=== PATIENT | male | born 1990 | race Caucasian/White ===

== ENCOUNTER 2018-01-03 18:41 | Emergency (ER) | payer BC, OTHER ==
--- NOTE | 2018-01-03 19:05 | EDM.PDOC ---
ED HPI GENERAL MEDICAL PROBLEM - General Chief Complaint: Gastrointestinal Problem Stated Complaint: NAUSEA, VOMITING Time Seen by Provider: 01/03/18 19:04 Source of Information: Reports: Patient - History of Present Illness INITIAL COMMENTS - FREE TEXT/NARRATIVE: HISTORY AND PHYSICAL: History of present illness: 27-year-old male presenting emergency department by EMS with chief complaint of upper abdominal pain with associated nausea and vomiting 1 day. Patient states that today he began to have some nausea and vomiting. He called EMS secondary to feeling short of breath with the nausea and vomiting. Denies any associated chest pain, palpitations, syncopal episodes, or focal neurologic deficits. States that he has had multiple times of vomiting today. Denies any blood in the vomitus. Denies any diarrhea. Pain is localized to the epigastric area. Patient still has his gallbladder and appendix. Denies any fever but has had chills. States that a few days ago he did have severe heartburn. Also states that he did have some left flank pain. No history of kidney stones. Denies any hematuria or dysuria. Patient does admit to smoking marijuana on a daily basis. He also occasionally states that he does on occasion smoke methamphetamine. Also states that he does have a history of asthma. -2100 CBC showed mild leukocytosis of 12,000 most likely stress response, CMP was unremarkable, showed no acute abnormalities. H pylori was negative, urine drug, UA pending. -2130 urine analysis was unremarkable. Urine drug screen was positive for amphetamine and marijuana as patient did tell me. Patient had significant relief with IV Zofran as well as GI cocktail. Review of systems: As per history of present illness and below otherwise all systems reviewed and negative. Past medical history: As per history of present illness and as reviewed below otherwise noncontributory. Surgical history: As per history of present illness and as reviewed below otherwise noncontributory. Social history: No reported history of drug or alcohol abuse. Family history: As per history of present illness and as reviewed below otherwise noncontributory. Physical exam: HEENT: Atraumatic, normocephalic, pupils reactive, negative for conjunctival pallor or scleral icterus, mucous membranes moist, throat clear, neck supple, nontender, trachea midline. Lungs: Clear to auscultation, breath sounds equal bilaterally, chest nontender. Heart: S1S2, regular, negative for clicks, rubs, or JVD. Abdomen: Soft, nondistended, tender to palpation epigastric with no radiation. Negative for masses or hepatosplenomegaly. Negative for costovertebral tenderness. Pelvis: Stable nontender. Genitourinary: Deferred. Rectal: Deferred. Extremities: Atraumatic, negative for cords or calf pain. Neurovascular unremarkable. Neuro: Awake, alert, oriented. Cranial nerves II through XII unremarkable. Cerebellum unremarkable. Motor and sensory unremarkable throughout. Exam nonfocal. Diagnostics: CBC, CMP, UA/UC, urine drug screen, CT abdomen pelvis Therapeutics: 1 L normal saline, 20 mg IV famotidine, 8 mg IV Zofran, GI cocktail Impression: Viral gastroenteritis GERD Plan: CBC, CMP, UA, CT abdomen and pelvis were unremarkable. Patient was positive for meth as well as marijuana which he had told me prior to taking. I did talk to him about stopping and as well as people who smoke marijuana daily ,may have had similar symptoms with nausea and vomiting. Patient most likely at this time has a viral gastroenteritis complicated by GERD. He does not take an antiacid but does report history of heartburn. I discharge the patient in good condition with a prescription for omeprazole as well as Zofran. I also instructed him to follow-up with a primary care provider as he may need an endoscopy at some point. He was negative for H. pylori. Patient was instructed to return to emergency department if he had any new or worsening symptoms. - Related Data Allergies Allergy/AdvReac Type Severity Reaction Status Date / Time No Known Allergies Allergy Verified 01/03/18 18:46 Home Meds: Home Meds . [No Known Home Meds] 01/03/18 [History] Past Medical History - Past Health History Medical/Surgical History: Denies Medical/Surgical History Psychiatric History: Reports: Addiction - Infectious Disease History Infectious Disease History: Reports: Chicken Pox Social & Family History - Family History Family Medical History: Noncontributory - Tobacco Use Smoking Status *Q: Current Every Day Smoker Years of Tobacco use: 10 Packs/Tins Daily: 1 - Recreational Drug Use Recreational Drug Use: Yes Recreational Drug Type: Reports: Marijuana/Hashish, Methamphetamine Other Recreational Drug Type: marijuana daily, meth occasional use ED ROS GENERAL - Review of Systems Review Of Systems: ROS reveals no pertinent complaints other than HPI. ED EXAM, GENERAL - Physical Exam Exam: See Below Course - Vital Signs Last Recorded V/S: Last Vital Signs Temp 96.8 F 01/03/18 18:42 Pulse 91 01/03/18 18:42 Resp 18 01/03/18 18:42 BP 123/73 01/03/18 18:42 Pulse Ox 100 01/03/18 18:42 - Orders/Labs/Meds Orders: Active Orders 24 hr Category Date Time Status Abdomen Pelvis w Cont [CT] Stat Exams 01/03/18 19:22 Taken CULTURE URINE [RM] Stat Lab 01/03/18 20:45 Ordered DRUG SCREEN, URINE [URCHEM] Stat Lab 01/03/18 20:45 Ordered UA W/MICROSCOPIC [URIN] Stat Lab 01/03/18 20:45 Ordered Labs: Laboratory Tests 01/03/18 01/03/18 01/03/18 Range/Units 19:39 19:39 19:39 WBC 12.29 H (4.0-11.0) K/uL RBC 5.62 (4.50-5.90) M/uL Hgb 16.5 (13.0-17.0) g/dL Hct 49.2 (38.0-50.0) % MCV 87.5 (80.0-98.0) fL MCH 29.4 (27.0-32.0) pg MCHC 33.5 (31.0-37.0) g/dL RDW Std Deviation 43.0 (28.0-62.0) fl RDW Coeff of Alex 13 (11.0-15.0) % Plt Count 252 (150-400) K/uL MPV 8.80 (7.40-12.00) fL Neut % (Auto) 84.5 H (48.0-80.0) % Lymph % (Auto) 10.8 L (16.0-40.0) % Cloud % (Auto) 4.3 (0.0-15.0) % Eos % (Auto) 0.2 (0.0-7.0) % Baso % (Auto) 0.2 (0.0-1.5) % Neut # (Auto) 10.4 H (1.4-5.7) K/uL Lymph # (Auto) 1.3 (0.6-2.4) K/uL Cloud # (Auto) 0.5 (0.0-0.8) K/uL Eos # (Auto) 0.0 (0.0-0.7) K/uL Baso # (Auto) 0.0 (0.0-0.1) K/uL Nucleated RBC % 0.0 /100WBC Nucleated RBCs # 0 K/uL Sodium 138 (136-148) mmol/L Potassium 4.2 (3.5-5.1) mmol/L Chloride 101 (98-107) mmol/L Carbon Dioxide 28.3 (21.0-32.0) mmol/L BUN 11 (7.0-18.0) mg/dL Creatinine 1.0 (0.8-1.3) mg/dL Est Cr Clr Drug Dosing 122.87 mL/min Estimated GFR (MDRD) > 60.0 ml/min Glucose 126 H (74-106) mg/dL Calcium 9.2 (8.5-10.1) mg/dL Total Bilirubin 0.4 (0.2-1.0) mg/dL AST 18 (15-37) IU/L ALT 32 (14-63) IU/L Alkaline Phosphatase 97 (46-116) U/L Total Protein 8.0 (6.4-8.2) g/dL Albumin 4.1 (3.4-5.0) g/dL Globulin 3.9 H (2.0-3.5) g/dL Albumin/Globulin Ratio 1.1 L (1.3-2.8) Amylase (25-115) U/L Lipase (73-393) U/L Urine Color Urine Appearance Urine pH (5.0-8.0) Ur Specific [place] (1.001-1.035) Urine Protein (NEGATIVE) mg/dL Urine Glucose (UA) (NEGATIVE) mg/dL Urine Ketones (NEGATIVE) mg/dL Urine Occult Blood (NEGATIVE) Urine Nitrite (NEGATIVE) Urine Bilirubin (NEGATIVE) Urine Urobilinogen (<2.0) EU/dL Ur Leukocyte Esterase (NEGATIVE) Urine RBC (0-2/HPF) Urine WBC (0-5/HPF) Ur Epithelial Cells (NONE-FEW) Urine Bacteria (NEGATIVE) Urine Opiates Screen (NEGATIVE) Ur Oxycodone Screen (NEGATIVE) Urine Methadone Screen (NEGATIVE) Ur Barbiturates Screen (NEGATIVE) Ur Phencyclidine Scrn (NEGATIVE) Ur Amphetamine Screen (NEGATIVE) U Methamphetamines Scrn (NEGATIVE) U Benzodiazepines Scrn (NEGATIVE) U Cocaine Metab Screen (NEGATIVE) U Marijuana (THC) Screen (NEGATIVE) H. pylori IgG Antibody NEGATIVE (NEG) 01/03/18 01/03/18 01/03/18 Range/Units 19:39 20:45 20:45 WBC (4.0-11.0) K/uL RBC (4.50-5.90) M/uL Hgb (13.0-17.0) g/dL Hct (38.0-50.0) % MCV (80.0-98.0) fL MCH (27.0-32.0) pg MCHC (31.0-37.0) g/dL RDW Std Deviation (28.0-62.0) fl RDW Coeff of Alex (11.0-15.0) % Plt Count (150-400) K/uL MPV (7.40-12.00) fL Neut % (Auto) (48.0-80.0) % Lymph % (Auto) (16.0-40.0) % Cloud % (Auto) (0.0-15.0) % Eos % (Auto) (0.0-7.0) % Baso % (Auto) (0.0-1.5) % Neut # (Auto) (1.4-5.7) K/uL Lymph # (Auto) (0.6-2.4) K/uL Cloud # (Auto) (0.0-0.8) K/uL Eos # (Auto) (0.0-0.7) K/uL Baso # (Auto) (0.0-0.1) K/uL Nucleated RBC % /100WBC Nucleated RBCs # K/uL Sodium (136-148) mmol/L Potassium (3.5-5.1) mmol/L Chloride (98-107) mmol/L Carbon Dioxide (21.0-32.0) mmol/L BUN (7.0-18.0) mg/dL Creatinine (0.8-1.3) mg/dL Est Cr Clr Drug Dosing mL/min Estimated GFR (MDRD) ml/min Glucose (74-106) mg/dL Calcium (8.5-10.1) mg/dL Total Bilirubin (0.2-1.0) mg/dL AST (15-37) IU/L ALT (14-63) IU/L Alkaline Phosphatase (46-116) U/L Total Protein (6.4-8.2) g/dL Albumin (3.4-5.0) g/dL Globulin (2.0-3.5) g/dL Albumin/Globulin Ratio (1.3-2.8) Amylase 66 (25-115) U/L Lipase 87 (73-393) U/L Urine Color YELLOW Urine Appearance HAZY Urine pH 5.0 (5.0-8.0) Ur Specific [place] 1.015 (1.001-1.035) Urine Protein NEGATIVE (NEGATIVE) mg/dL Urine Glucose (UA) NEGATIVE (NEGATIVE) mg/dL Urine Ketones 15 H (NEGATIVE) mg/dL Urine Occult Blood NEGATIVE (NEGATIVE) Urine Nitrite NEGATIVE (NEGATIVE) Urine Bilirubin NEGATIVE (NEGATIVE) Urine Urobilinogen 0.2 (<2.0) EU/dL Ur Leukocyte Esterase NEGATIVE (NEGATIVE) Urine RBC 0-2 (0-2/HPF) Urine WBC 1-3 (0-5/HPF) Ur Epithelial Cells RARE (NONE-FEW) Urine Bacteria FEW (NEGATIVE) Urine Opiates Screen NEGATIVE (NEGATIVE) Ur Oxycodone Screen NEGATIVE (NEGATIVE) Urine Methadone Screen NEGATIVE (NEGATIVE) Ur Barbiturates Screen NEGATIVE (NEGATIVE) Ur Phencyclidine Scrn NEGATIVE (NEGATIVE) Ur Amphetamine Screen POSITIVE (NEGATIVE) U Methamphetamines Scrn POSITIVE (NEGATIVE) U Benzodiazepines Scrn NEGATIVE (NEGATIVE) U Cocaine Metab Screen NEGATIVE (NEGATIVE) U Marijuana (THC) Screen POSITIVE (NEGATIVE) H. pylori IgG Antibody (NEG) Meds: Medications Discontinued Medications Generic Name Dose Route Start Last Admin Trade Name Freq PRN Reason Stop Dose Admin Al Hydroxide/Mg Hydroxide 15 0 ml 01/03/18 21:02 01/03/18 21:17 ml/ Metoclopramide HCl 5 mg/ PO 01/03/18 21:03 25 each Lidocaine HCl 5 ml ONETIME ONE Administration Famotidine 20 mg 01/03/18 19:22 01/03/18 20:23 Pepcid IVPUSH 01/03/18 19:23 20 mg ONETIME ONE Administration Sodium Chloride 1,000 mls @ 999 mls/hr 01/03/18 19:22 06/03/18 20:22 Normal Saline IV 01/03/18 20:22 999 mls/hr STAT ONE Administration Iopamidol 100 ml 01/03/18 20:10 01/03/18 20:11 Isovue Multipack-370 (76%) IVPUSH 01/03/18 20:11 100 ml ONETIME STA Administration Ondansetron HCl 8 mg 01/03/18 19:22 01/03/18 20:22 Zofran IVPUSH 01/03/18 19:23 8 mg ONETIME ONE Administration Departure - Departure Time of Disposition: 21:38 Disposition: Home, Self-Care 01 Condition: Good Clinical Impression: Viral gastroenteritis GERD (gastroesophageal reflux disease) Qualifiers: Esophagitis presence: esophagitis presence not specified Qualified Code(s): K21.9 - Gastro-esophageal reflux disease without esophagitis - Discharge Information Referrals: PCP,None [Primary Care Provider] - Forms: ED Department Discharge Additional Instructions: My general discharge The following information is given to patients seen in the emergency department who are being discharged to home. This information is to outline your options for follow-up care. We provide all patients seen in our emergency department with a follow-up referral. The need for follow-up, as well as the timing and circumstances, are variable depending upon the specifics of your emergency department visit. If you don't have a primary care physician on staff, we will provide you with a referral. We always advise you to contact your personal physician following an emergency department visit to inform them of the circumstance of the visit and for follow-up with them and/or the need for any referrals to a consulting specialist. The emergency department will also refer you to a specialist when appropriate. This referral assures that you have the opportunity for follow-up care with a specialist. All of these measure are taken in an effort to provide you with optimal care, which includes your follow-up. Under all circumstances we always encourage you to contact your private physician who remains a resource for coordinating your care. When calling for follow-up care, please make the office aware that this follow-up is from your recent emergency room visit. If for any reason you are refused follow-up, please contact the [facility] Emergency Department at and asked to speak to the emergency department charge nurse. [facility] [address] [place] [address] [facility] [address] [place] [address] Follow-up with one of the numbers above with a primary care physician. Take medications as prescribed. Abstain from marijuana and methamphetamine. Return emergency department if any new or worsening symptoms. - My Orders Last 24 Hours: My Active Orders 01/03/18 19:22 Abdomen Pelvis w Cont [CT] Stat 01/03/18 20:45 CULTURE URINE [RM] Stat DRUG SCREEN, URINE [URCHEM] Stat UA W/MICROSCOPIC [URIN] Stat - Assessment/Plan Last 24 Hours: My Active Orders 01/03/18 19:22 Abdomen Pelvis w Cont [CT] Stat 01/03/18 20:45 CULTURE URINE [RM] Stat DRUG SCREEN, URINE [URCHEM] Stat UA W/MICROSCOPIC [URIN] Stat
[2018-01-03] MEDS ORDERED: Famotidine 20 MG/2 ML SDV IVPUSH ONE (19:22)
[2018-01-03] MEDS ORDERED: Ondansetron 4 MG/2 ML SDV IVPUSH ONE (19:22)
[2018-01-03] MEDS ORDERED: Sodium Chloride 0.9% 1,000 ML IV ONE (19:22)
[2018-01-03 20:04] LABS: CHLORIDE,CL 101 mmol/L (98-107); SODIUM,NA 138 mmol/L (136-148)
[2018-01-03] MEDS ORDERED: Iopamidol 755 MG/ML 200 ML Multipack Bottle IVPUSH STA (20:10)
[2018-01-03] MEDS ORDERED: Alum Hydrox/Mag Hydrox/Simeth 15 ML, Metoclopramide 5 MG, Lidocaine 2% 5 ML PO ONE ×3 (21:02)
--- NOTE | 2018-01-04 15:17 | CT ---
EXAM DATE: 01/03/18 PATIENT'S AGE: 27 Patient: RICK GUTIERREZ Facility: [place], [place] Site . Site : 1990 Study: CT Abdomen/Pelvis WITH [id number]/3/2018 8:13:04 PM Ordering Physician: Escobar Burden Final Report: HISTORY: Abdominal pain. COMPARISON: None. TECHNIQUE: Axial images were obtained through the abdomen and pelvis following the 100 cc on Isovue-370 intravenous contrast. FINDINGS: The lung bases are clear. The liver, spleen, pancreas, gallbladder, adrenal glands and kidneys are within normal. The bowel is normal in caliber. The appendix is normal. No lymphadenopathy or ascites. The bones within normal. IMPRESSION: No acute abnormality. Please note that all CT scans at this facility use dose modulation, iterative reconstruction, and/or weight-based dosing when appropriate to reduce radiation dose to as low as reasonably achievable. Dictated by Sandi Clancy MD @ Jan 03 2018 8:50PM (Electronic Signature) Report Signed by Proxy. [facility]
== END 2018-01-03 21:56 | disposition home or self-care (01) ==
LOC: MW.ED 18:41
DX: A08.4 Viral intestinal infection, unspecified (principal); K21.9 Gastro-esophageal reflux disease without esophagitis; F17.210 Nicotine dependence, cigarettes, uncomplicated
CPT/HCPCS: 36415; 74177; 80053; 80305; 81001; 82150; 83690; 85025; 86677; 87086; 96361; 96374; 96375; 99284; A9270; J2405; J7040; Q9967; 99283

== ENCOUNTER 2020-05-12 06:37 | Emergency (ER) | payer SELFPAY ==
--- NOTE | 2020-05-12 07:40 | EDM.PDOC ---
ED [facility] GENERAL MEDICAL PROBLEM - General Chief Complaint: Skin Complaint Stated Complaint: INFECTION ON RT ARM Time Seen by Provider: 05/12/20 06:57 Source of Information: Reports: Patient, Old Records History Limitations: Reports: No Limitations - History of Present Illness INITIAL COMMENTS - FREE TEXT/NARRATIVE: 30-year-old male with past medical history of polysubstance abuse presenting with concern for infected tattoo. Patient had a tattoo on his right forearm placed about 3 to 4 days ago. He reports a 2-day history of redness and tenderness over the proximal anterior aspect of the right forearm and is concerned that he may have a skin infection. He denies any fever, chills, nausea, vomiting, or swelling. Denies any recent history of IV drug use although there is a history of this several years ago, he adamantly denies any IV drug use within the past 12 months. No history of HIV or hepatitis. No other complaints. ROS: A 10-point review of systems was negative, except as noted in the HPI (or in the ROS section of this note). Past medical history: Reviewed, no additional pertinent history. Surgical history: Reviewed in system, no additional pertinent history. Social history: Reviewed in system, no additional pertinent history. Family history: Reviewed in system, no additional pertinent history. PHYSICAL EXAM Vital signs reviewed. Nursing notes reviewed. Constitutional: Awake, alert, non-distressed. Head: Normocephalic, atraumatic. Eyes: EOMI, conjunctiva normal, no discharge, no scleral icterus. Ears, Nose, Throat: External ears and nose normal, moist oral mucosa. Cardiovascular: Tachycardic, 2+ radial pulse, capillary refill less than 2 seconds. Pulmonary: normal work of breathing, no accessory muscle use. Abdomen/GI: Soft, nontender, nondistended, no guarding or rigidity, no masses. Musculoskeletal: No deformities. Integumentary: Appropriate color for ethnicity, warm, dry, no pallor or jaundice, no rash. The anterior aspect of the right forearm has a tattoo with some mild associated erythema concerning for cellulitis. There is no fluctuance or swelling to suggest an abscess. The right elbow, wrist, and hand joints exhibit full range of motion without pain on passive stretch and I have no concern for septic arthritis at this point. Neurologic: Alert, answering questions appropriately, normal speech, no facial droop, moving all extremities well. Psychiatric: Appropriate mood and affect, normal thought process. R forearm Pain Score (Numeric/FACES): 8 - Related Data Allergies Allergy/AdvReac Type Severity Reaction Status Date / Time No Known Allergies Allergy Verified 05/12/20 07:00 Home Meds: Home Meds cephALEXin [Cephalexin] 500 mg PO QID 7 Days #28 tablet 05/12/20 [Rx] Past Medical History - Past Health History Medical/Surgical History: Denies Medical/Surgical History HEENT History: Reports: None Musculoskeletal History: Reports: None Psychiatric History: Reports: Addiction - Infectious Disease History Infectious Disease History: Reports: Chicken Pox - Past Surgical History Other HEENT Surgeries/Procedures: eye surgery (06/21/2015) Other Musculoskeletal Surgeries/Procedures:: right hand surgery Social & Family History - Family History Family Medical History: Noncontributory - Tobacco Use Smoking Status *Q: Current Every Day Smoker Years of Tobacco use: 15 Packs/Tins Daily: 1 - Caffeine Use Caffeine Use: Reports: None - Recreational Drug Use Recreational Drug Use: Yes Recreational Drug Type: Reports: Marijuana/Hashish Recreational Drug Use Frequency: Daily ED ROS GENERAL - Review of Systems Review Of Systems: See Below ED EXAM, SKIN/RASH Exam: See Below Course - Vital Signs Text/Narrative:: Patient mildly tachycardic but hemodynamically stable, afebrile, well-appearing, looks nontoxic. Differential diagnosis includes but is not limited to: Cellulitis, sepsis, abscess Examination consistent with mild cellulitis of the right forearm. No evidence of abscess. No evidence of septic arthritis. Patient is mildly tachycardic and there was some concern for sepsis based on this. I did recommend blood work including 2 sets of blood cultures and routine labs such as CBC, BMP, INR, per usual CMS sepsis guidelines. The patient is concerned about the financial costs of this testing and is declining any labs or work-up, he wants a prescription for antibiotics and then wants to go home. He does not appear systemically ill. He has capacity to make his own medical decisions. He understands of foregoing testing could potentially result in missed morbidity including organ failure and potential delay in diagnosis and potentially worsened outcomes including repeat emergency department visits, worsening of his condition, or . We will plan to treat with a one-week course of p.o. cephalexin and recommend [id number] acetaminophen and ibuprofen along with close primary care follow-up for re-evaluation. Plan: Patient is stable to discharge home with outpatient primary care clinic follow-up. Strict emergency department return precautions were provided, patient indicated understanding. All questions were answered prior to departure. Discharged in good condition. Last Recorded V/S: Last Vital Signs Temp 36.6 C 05/12/20 06:54 Pulse 102 H 05/12/20 06:54 Resp 17 05/12/20 06:54 BP 129/84 05/12/20 06:54 Pulse Ox 97 05/12/20 06:54 Departure - Departure Time of Disposition: 07:38 Disposition: Home, Self-Care 01 Condition: Good Clinical Impression: Cellulitis of right forearm - Discharge Information *PRESCRIPTION DRUG MONITORING PROGRAM REVIEWED*: Not Applicable *COPY OF PRESCRIPTION DRUG MONITORING REPORT IN PATIENT IVA: Not Applicable Prescriptions: cephALEXin [Cephalexin] 500 mg PO QID 7 Days #28 tablet Instructions: Cellulitis, Adult Referrals: [facility] - [facility] Practice [Provider Group] - 1 Week (For follow-up of skin infection.) Forms: ED Department Discharge Additional Instructions: You were seen in the emergency department for a skin infection on your right forearm. We did recommend blood work and blood cultures out of concern for sepsis, a potentially serious infection. At this time you are choosing to decline this testing. I did prescribe some antibiotics to the pharmacy. Take these as directed and finish the entire bottle. You can take [id number] Tylenol and ibuprofen as directed on the bottle for pain. You should follow-up with a primary doctor the next week. Warning signs to come back to the ER include worsening swelling, fever, chills, repeated vomiting, lightheadedness, or any other new or worsening symptoms that are concerning to you. Please return the emergency department immediately if your symptoms worsen or if you feel worse. Thank you for choosing the [facility] emergency department in [place] for your medical needs today. It was a pleasure caring for you. The following information is given to patients seen in the emergency department who are being discharged. This information is to outline your options for follow-up care. We provide all patients seen in our emergency department with a follow-up referral. The need for follow-up, as well as the timing and circumstances, are variable depending upon the specifics of your emergency department visit. If you don't have a primary care physician on staff, we will provide you with a referral. We always advise you to contact your personal physician following an emergency department visit to inform them of the circumstance of the visit and for follow-up with them and/or the need for any referrals to a consulting specialist. The emergency department will also refer you to a specialist when appropriate. This referral assures that you have the opportunity for follow-up care with a specialist. All of these measure are taken in an effort to provide you with optimal care, which includes your follow-up. Under all circumstances we always encourage you to contact your private physician who remains a resource for coordinating your care. When calling for follow-up care, please make the office aware that this follow-up is from your recent emergency room visit. If for any reason you are refused follow-up, please contact the [facility] Emergency Department at and asked to speak to the emergency department charge nurse. If you do not have a primary care physician that is caring for you, you can contact these clinics below to set up an appointment to establish care: [facility] [address] [place] [address] [id number] [address] Sepsis Event Note (ED) - Evaluation Sepsis Screening Result: No Definite Risk - Focused Exam Vital Signs: Vital Signs Temp Pulse Resp BP Pulse Ox 05/12/20 06:54 36.6 C 102 H 17 129/84 97
== END 2020-05-12 07:51 | disposition home or self-care (01) ==
LOC: MW.ED 06:37
DX: L03.113 Cellulitis of right upper limb (principal); F17.210 Nicotine dependence, cigarettes, uncomplicated
CPT/HCPCS: 99283

== ENCOUNTER 2020-07-23 10:05 | Emergency (ER) | payer SELFPAY ==
--- NOTE | 2020-07-23 10:24 | EDM.PDOC ---
ED HPI GENERAL MEDICAL PROBLEM - General Chief Complaint: Skin Complaint Stated Complaint: Infected Tattoo Time Seen by Provider: 07/23/20 10:11 Source of Information: Reports: Patient History Limitations: Reports: No Limitations - History of Present Illness INITIAL COMMENTS - FREE TEXT/NARRATIVE: HISTORY AND PHYSICAL: History of present illness: Patient is a 30 year old female who presents to the ED with complaints of "infected tattoo" to his right bicep area. Had a tattoo placed a few days ago and since has had redness and tenderness to the site. States he had cellulitis of a tattoo in May (from the same artist) and had take Keflex, which "helped alot". History of polysubstance abuse, denies any IV drug use in "along time". Denies any fevers, chills, headache, neck/back pain, chest pain, SOB, cough, GI or symptoms. Review of systems: As per history of present illness and below otherwise all systems reviewed and negative. Past medical history: As per history of present illness and as reviewed below otherwise noncontributory. Surgical history: As per history of present illness and as reviewed below otherwise noncontributory. Social history: See social history for further information Family history: As per history of present illness and as reviewed below otherwise noncontributory. Physical exam: General: Well developed and well nourished. Alert and orientated x 3. Nontoxic in appearance and in no acute distress. Vital signs are stable and have been reviewed by me. Nursing notes were reviewed. HEENT: Atraumatic, normocephalic, pupils equal and reactive bilaterally, negative for conjunctival pallor or scleral icterus, mucous membranes moist, neck supple, nontender, trachea midline. No drooling or trismus noted. No meningeal signs. No hot potato voice noted. Lungs: Clear to auscultation, breath sounds equal bilaterally, chest nontender. Normal work of breathing, no accessory muscles used. Heart: S1S2, regular rate and rhythm without overt murmur Abdomen: Soft, nondistended, nontender. Skin: New tattoo of "Family" on his inner right bicep area with mild diffuse redness around the lettering. No fluctuance or concern for abscess. Remaining skin is intact, warm, dry. No lesions or rashes noted. Hematologic: No petechiae or purpra. Mucosa appropriate color and normal nail bed color and refill. Extremities: Atraumatic, moves all extremities per self without difficulty or deficits, negative for cords or calf pain. Neurovascular unremarkable. Neuro: Awake, alert, oriented. Cranial nerves II through XII unremarkable. Cerebellum unremarkable. Motor and sensory unremarkable throughout. Exam nonfocal. Psychiatric: Mood and affect are appropriate. Normal thought process. Answering questions appropriately. Notes: Will place on antibiotics with complete education. At this time I do not see a need for any labs to be drawn. I have talked with the patient about today's findings, in addition to providing specific details for plan of care. The patient is stable for discharge, counseling was provided and we discussed in great detail signs and symptoms that would prompt them to return to the Emergency Department. Medication, follow up and supportive care measures were reviewed and discussed. Voices understanding and is agreeable to plan of care. Denies any further questions or concerns at this time. Diagnostics: None Therapeutics: None Prescription: Keflex Impression: Cellulitis Plan: 1. Today your tattoo appears to be infected. Gently wash with mild soap and water twice daily. 2. Take the antibiotic as directed. Alternate Tylenol and Ibuprofen as needed. 3. We encourage you to follow up with your primary care provider and/or recommended specialist in the next few days for re-evaluation and further care/management. If your symptoms should worsen, new symptoms develop or any of the signs and symptoms we discussed should arise please return to the emergency room or call 911 (if needed). Definitive disposition and diagnosis as appropriate pending reevaluation and review of above. - Related Data Allergies Allergy/AdvReac Type Severity Reaction Status Date / Time No Known Allergies Allergy Verified 07/23/20 10:18 Home Meds: Home Meds cephALEXin [Keflex] 500 mg PO TID 7 Days #21 capsule 07/23/20 [Rx] Past Medical History - Past Health History Medical/Surgical History: Denies Medical/Surgical History HEENT History: Reports: None Musculoskeletal History: Reports: None Psychiatric History: Reports: Addiction - Infectious Disease History Infectious Disease History: Reports: Chicken Pox - Past Surgical History Other HEENT Surgeries/Procedures: eye surgery (06/21/2015) Other Musculoskeletal Surgeries/Procedures:: right hand surgery Social & Family History - Family History Family Medical History: No Pertinent Family History - Caffeine Use Caffeine Use: Reports: None ED ROS GENERAL - Review of Systems Review Of Systems: Comprehensive ROS is negative, except as noted in HPI. ED EXAM, SKIN/RASH Exam: See Below (See dictation) Course - Vital Signs Last Recorded V/S: Last Vital Signs Temp 98 F 07/23/20 10:16 Pulse 115 H 07/23/20 10:16 Resp 16 07/23/20 10:16 BP 149/88 H 07/23/20 10:16 Pulse Ox 98 07/23/20 10:16 Departure - Departure Time of Disposition: 10:24 Disposition: Home, Self-Care 01 Clinical Impression: Cellulitis Qualifiers: Site of cellulitis: extremity Site of cellulitis of extremity: upper extremity Laterality: right Qualified Code(s): L03.113 - Cellulitis of right upper limb - Discharge Information Prescriptions: cephALEXin [Keflex] 500 mg PO TID 7 Days #21 capsule Instructions: Cellulitis, Adult, [id number] Referrals: Jalil Mclaughlin DO [Primary Care Provider] - Forms: ED Department Discharge Additional Instructions: The following information is given to patients seen in the emergency department who are being discharged to home. This information is to outline your options for follow-up care. We provide all patients seen in our emergency department with a follow-up referral. The need for follow-up, as well as the timing and circumstances, are variable depending upon the specifics of your emergency department visit. If you don't have a primary care physician on staff, we will provide you with a referral. We always advise you to contact your personal physician following an emergency department visit to inform them of the circumstance of the visit and for follow-up with them and/or the need for any referrals to a consulting specialist. The emergency department will also refer you to a specialist when appropriate. This referral assures that you have the opportunity for follow-up care with a specialist. All of these measure are taken in an effort to provide you with optimal care, which includes your follow-up. Under all circumstances we always encourage you to contact your private physician who remains a resource for coordinating your care. When calling for follow-up care, please make the office aware that this follow-up is from your recent emergency room visit. If for any reason you are refused follow-up, please contact the [facility] at and asked to speak to the emergency department charge nurse. [facility] [address] [place] [address] [facility] [address] [place] [address] Thank you for choosing the [facility] emergency department in [place] for your medical needs today. It was a pleasure caring for you. Today you were seen in the emergency department for infected tattoo. 1. Today your tattoo appears to be infected. Gently wash with mild soap and water twice daily. 2. Take the antibiotic as directed. Alternate Tylenol and Ibuprofen as needed. 3. We encourage you to follow up with your primary care provider and/or recommended specialist in the next few days for re-evaluation and further care/management. If your symptoms should worsen, new symptoms develop or any of the signs and symptoms we discussed should arise please return to the emergency room or call 911 (if needed). Sepsis Event Note (ED) - Focused Exam Vital Signs: Vital Signs Temp Pulse Resp BP Pulse Ox 07/23/20 10:16 98 F 115 H 16 149/88 H 98
== END 2020-07-23 10:29 | disposition home or self-care (01) ==
LOC: MW.ED 10:05
DX: L03.113 Cellulitis of right upper limb (principal)
CPT/HCPCS: 99283

== ENCOUNTER 2021-12-06 23:27 | Emergency (ER) | payer SELFPAY | END 2021-12-06 23:55 | disposition home or self-care (01) | LOC: MW.ED 23:27 | DX: L03.113 Cellulitis of right upper limb (principal); Z79.899 Other long term (current) drug therapy | CPT/HCPCS: 99283 ==

== ENCOUNTER 2022-01-31 08:12 | Emergency (ER) | payer SELFPAY ==
[2022-01-31] MEDS ORDERED: Tetracaine HCl/PF 0.5% 4 ML Bottle EYELF ONE (08:38)
[2022-01-31] MEDS ORDERED: Sulfacetamide 10% Ophth Soln 15 ML Bottle EYELF ONE (08:39)
== END 2022-01-31 09:25 | disposition home or self-care (01) ==
LOC: MW.ED 08:12
DX: T15.02XA Foreign body in cornea, left eye, initial encounter (principal); W45.8XXA Other foreign body or object entering through skin, initial encounter; Y99.0 Civilian activity done for income or pay
CPT/HCPCS: 65205; 99283; A9270; 65222

== ENCOUNTER 2022-04-11 22:42 | Emergency (ER) | payer SELFPAY ==
[2022-04-12 01:04] LABS: CORONAVIRUS COVID-19 NAA POSITIVE (NEGATIVE); INFLUENZA A NAA NEGATIVE (NEGATIVE); INFLUENZA B NAA NEGATIVE (NEGATIVE)
[2022-04-12] MEDS ORDERED: Ketorolac 30 MG/ML SDV IM STA (01:34)
[2022-04-12] MEDS ORDERED: Ondansetron 4 MG Tab.DIS PO ONE (01:34)
== END 2022-04-12 02:15 | disposition home or self-care (01) ==
LOC: MW.ED 22:42
DX: U07.1 COVID-19 (principal); F17.210 Nicotine dependence, cigarettes, uncomplicated
CPT/HCPCS: 0240U; 96372; 99284; A9270; J1885; 99283

== ENCOUNTER 2022-04-13 01:57 | Emergency (ER) | payer SELFPAY ==
[2022-04-13] MEDS ORDERED: Ketorolac 30 MG/ML SDV IM STA (02:10)
[2022-04-13 02:44] LABS: CARBON DIOXIDE,CO2 28.9 mmol/L (21.0-32.0); POTASSIUM,K 3.6 mmol/L (3.5-5.1)
[2022-04-13] MEDS ORDERED: Iopamidol 755 Mg/ML 100 ML Bottle IVPUSH ONE (03:15)
== END 2022-04-13 04:12 | disposition home or self-care (01) ==
LOC: MW.ED 01:57
DX: U07.1 COVID-19 (principal); F17.210 Nicotine dependence, cigarettes, uncomplicated
CPT/HCPCS: 36415; 71046; 74177; 80053; 84484; 85025; 93005; 96372; 99285; J1885; Q9967; 93010; 99284

== ENCOUNTER 2022-08-27 11:12 | Emergency (ER) | payer SELFPAY ==
[2022-08-27 12:39] LABS: CARBON DIOXIDE,CO2 30.4 mmol/L (21.0-32.0); POTASSIUM,K 4.5 mmol/L (3.5-5.1)
== END 2022-08-27 14:38 | disposition home or self-care (01) ==
LOC: MW.ED 11:12
DX: R07.89 Other chest pain (principal); F17.210 Nicotine dependence, cigarettes, uncomplicated
CPT/HCPCS: 36415; 71046; 71046-26; 80048; 84484; 85025; 85379; 93005; 99283; 99285

== ENCOUNTER 2023-07-01 01:33 | Emergency (ER) | payer SELFPAY ==
[2023-07-01] MEDS ORDERED: Tetracaine HCl/PF 0.5% 4 ML Bottle EYEBOTH STA (01:39)
[2023-07-01] MEDS ORDERED: Ketorolac 30 MG/ML SDV IM ONE (02:45)
[2023-07-01] MEDS ORDERED: Acetaminophen/HYDROcodone 325-10 MG Tab PO ONE (03:03)
[2023-07-01] MEDS ORDERED: Erythromycin Base 0.5% Ophth Oint 1 GM Tube EYEBOTH ONE (03:52)
== END 2023-07-01 04:28 | disposition home or self-care (01) ==
LOC: MW.ED 01:33
DX: H57.13 Ocular pain, bilateral (principal); Z86.16 Personal history of COVID-19
CPT/HCPCS: 96372; 99283; A9270; J1885; J3490

== ENCOUNTER 2023-10-20 17:47 | Emergency (ER) | payer SELFPAY ==
[2023-10-20 19:15] LABS: CORONAVIRUS COVID-19 NAA POSITIVE (NEGATIVE); INFLUENZA A NAA NEGATIVE (NEGATIVE); INFLUENZA B NAA NEGATIVE (NEGATIVE)
== END 2023-10-20 19:30 | disposition home or self-care (01) ==
LOC: MW.ED 17:47
DX: B34.9 Viral infection, unspecified (principal); Z86.19 Personal history of other infectious and parasitic diseases; Z86.16 Personal history of COVID-19; Z75.8 Other problems related to medical facilities and other health care
CPT/HCPCS: 0240U; 99284; 99283

== ENCOUNTER 2023-11-16 04:23 | Emergency (ER) | payer SELFPAY ==
[2023-11-16] MEDS: Sodium Chloride 0.9% 1,000 ML IV ONE (04:42)
[2023-11-16] MEDS: Ondansetron 4 MG/2 ML SDV IVPUSH ONE (04:43)
[2023-11-16] MEDS: Morphine 4 MG/ML Syringe IVPUSH ONE (04:43)
[2023-11-16 04:44] LABS: BASOPHILS ABSOLUTE AUTO 0.04 K/uL (0.00-0.20); BASOPHILS PERCENT AUTO 0.2 % (0.0-1.0); EOSINOPHILS ABSOLUTE AUTO 0.19 K/uL (0.00-0.45); HEMATOCRIT 46.7 % (42.0-52.0); HEMOGLOBIN 15.5 g/dL (14.0-18.0); IMMATURE GRAN PERCENT AUTO 0.5 % (0.0-0.4); LYMPHOCYTES ABSOLUTE AUTO 2.62 K/uL (1.00-4.80); LYMPHOCYTES PERCENT AUTO 14.2 % (24.0-44.0); MEAN CORPUSCULAR HEMOGLOBIN 28.4 pg (28.0-32.0); MEAN CORPUSCULAR HGB CONC 33.2 g/dL (32.0-36.0); MEAN CORPUSCULAR VOLUME 85.5 fL (83.0-99.0); MEAN PLATELET VOLUME 8.5 fL (9.4-12.4); MONOCYTES ABSOLUTE AUTO 1.22 K/uL (0.00-0.80); MONOCYTES PERCENT AUTO 6.6 % (0.0-8.0); NEUTROPHILS ABSOLUTE AUTO 14.22 K/uL (1.80-7.70); NEUTROPHILS PERCENT AUTO 77.5 % (41.0-71.0); PLATELET COUNT,PLT 364 K/uL (150-400); RED BLOOD CELL COUNT 5.46 M/uL (4.52-5.90); WHITE BLOOD CELL COUNT,WBC 18.39 K/uL (3.9-11.3)
[2023-11-16] MEDS: Sodium Chloride 0.9% 2.5 ML Syringe FLUSH PRN (04:44)
[2023-11-16] MEDS: Sodium Chloride 0.9% 10 ML Syringe FLUSH PRN (04:45)
[2023-11-16 05:17] LABS: A/G RATIO 0.9 (0.9-1.6); ALBUMIN 3.8 g/dL (3.4-5.0); BILIRUBIN TOTAL 0.3 mg/dL (0.2-1.0); CALCIUM 8.9 mg/dL (8.5-10.1); CARBON DIOXIDE,CO2 27.9 mmol/L (21.0-32.0); CREATININE 0.9 mg/dL (0.8-1.3); EST CRCL DRUG DOSING (CG) 129.33 mL/min; MAGNESIUM 1.7 mg/dL (1.8-2.4); POTASSIUM,K 3.8 mmol/L (3.5-5.1)
[2023-11-16] MEDS: Iopamidol 755 MG/ML 500 ML Multipack Bottle IVPUSH ONE (05:27)
[2023-11-16] MEDS: droPERidol 5 MG/2 ML SDV IVPUSH ONE (06:28)
[2023-11-16] MEDS: Magnesium Sulfate/Water 2 GM in Premix Bag 1 BAG IV ONE (06:28)
[2023-11-16] MEDS: Dicyclomine 10 MG Cap PO ONE (06:45)
== END 2023-11-16 07:14 | disposition home or self-care (01) ==
LOC: MW.ED 04:23
DX: K52.9 Noninfective gastroenteritis and colitis, unspecified (principal); D72.829 Elevated white blood cell count, unspecified; Z79.899 Other long term (current) drug therapy; Z86.19 Personal history of other infectious and parasitic diseases; Z86.16 Personal history of COVID-19
CPT/HCPCS: 36415; 74177; 80053; 83690; 83735; 84484; 85025; 93005; 96361; 96365; 96375; 99284; A9270; J1790; J2270; J2405; J3475; J3490; J7030; Q9967; 93010

== ENCOUNTER 2024-01-18 22:11 | Emergency (ER) | payer SELFPAY ==
[2024-01-18] MEDS: Ibuprofen 800 MG Tab PO ONE (22:36)
[2024-01-18] MEDS: Acetaminophen/oxyCODONE 325-5 MG Tab PO ONE (22:36)
[2024-01-18] MEDS: Erythromycin Base 0.5% Ophth Oint 1 GM Tube EYEBOTH ONE (22:38)
[2024-01-18] MEDS: Tetracaine HCl/PF 0.5% 4 ML Bottle EYEBOTH ONE (22:47)
== END 2024-01-18 22:57 | disposition home or self-care (01) ==
LOC: MW.ED 22:11
DX: H16.133 Photokeratitis, bilateral (principal); Z75.8 Other problems related to medical facilities and other health care; Z79.899 Other long term (current) drug therapy; Z86.16 Personal history of COVID-19
CPT/HCPCS: 99283; A9270; J3490

== ENCOUNTER 2025-04-09 13:11 | Emergency (ER) | payer SELFPAY ==
[2025-04-09] MEDS ORDERED: Sodium Chloride 0.9% 10 ML Syringe FLUSH PRN (13:49)
[2025-04-09] MEDS ORDERED: Sodium Chloride 0.9% 2.5 ML Syringe FLUSH PRN (13:49)
[2025-04-09 14:17] LABS: BASOPHILS ABSOLUTE AUTO 0.08 K/uL (0.00-0.20); BASOPHILS PERCENT AUTO 0.4 % (0.0-1.0); EOSINOPHILS ABSOLUTE AUTO 0.11 K/uL (0.00-0.45); EOSINOPHILS PERCENT AUTO 0.5 % (0.0-6.0); IMMATURE GRAN ABSOLUTE AUTO 0.13 K/uL (0.00-0.05); IMMATURE GRAN PERCENT AUTO 0.6 % (0.0-0.4); LYMPHOCYTES ABSOLUTE AUTO 2.05 K/uL (1.00-4.80); LYMPHOCYTES PERCENT AUTO 9.0 % (24.0-44.0); MEAN PLATELET VOLUME 8.4 fL (9.4-12.4); MONOCYTES ABSOLUTE AUTO 1.45 K/uL (0.00-0.80); MONOCYTES PERCENT AUTO 6.4 % (0.0-8.0); NEUTROPHILS ABSOLUTE AUTO 18.94 K/uL (1.80-7.70); NEUTROPHILS PERCENT AUTO 83.1 % (41.0-71.0); NRBC ABSOLUTE 0.00 K/uL (0.00-0.02); NRBC PERCENT 0.0 /100WBC (0.0-0.2); PLATELET COUNT,PLT 371 K/uL (150-400); RED BLOOD CELL COUNT 6.02 M/uL (4.52-5.90); WHITE BLOOD CELL COUNT,WBC 22.76 K/uL (3.9-11.3)
[2025-04-09 14:43] LABS: LACTIC ACID 1.1 mmol/L (0.4-2.0)
[2025-04-09 14:47] LABS: A/G RATIO 1.0 (0.9-1.6); ALANINE AMINOTRANSFERASE,ALT 51.0 IU/L (14-63); ASPARTATE AMNIOTRANSFERASE,AST 22.0 IU/L (15-37); BILIRUBIN TOTAL 0.3 mg/dL (0.2-1.0); BLOOD UREA NITROGEN,BUN 15.0 mg/dL (7.0-18.0); CARBON DIOXIDE,CO2 21.9 mmol/L (21.0-32.0); CHLORIDE,CL 102.0 mmol/L (98-107); CREATININE 1.1 mg/dL (0.8-1.3); EST CRCL DRUG DOSING (CG) 101.73 mL/min; GLUCOSE RANDOM 120.0 mg/dL (74-106); POTASSIUM,K 4.7 mmol/L (3.5-5.1); PROTEIN TOTAL,TP 8.5 g/dL (6.4-8.2); SODIUM,NA 137.0 mmol/L (136-148)
[2025-04-09 14:48] LABS: ESTIMATED GFR 91.0 mL/min (>60)
[2025-04-09] MEDS: Alum Hydrox/Mag Hydrox/Simeth 15 ML, Lidocaine 2% 5 ML PO ONE (15:07)
[2025-04-09] MEDS: Ketorolac 30 MG/ML SDV IVPUSH ONE (15:07)
[2025-04-09] MEDS: Iopamidol 755 MG/ML 500 ML Multipack Bottle IVPUSH STA (15:30)
[2025-04-09 16:01] LABS: APPEARANCE,URINE CLEAR; GLUCOSE,URINE NEGATIVE (NEGATIVE); OCCULT BLOOD,URINE NEGATIVE (NEGATIVE)
[2025-04-09 16:10] LABS: EPITHELIAL CELLS,URINE OCCASIONAL (NONE-FEW)
[2025-04-09 16:11] LABS: AMPHETAMINES SCREEN, URINE PRESUMPTIVE POSITIVE (CUTOFF=500); BUPRENORPHINE SCREEN,URINE NEGATIVE (CUTOFF=10); METHADONE SCREEN, URINE NEGATIVE (CUTOFF=200); METHAMPHETAMINES SCREEN, URINE PRESUMPTIVE POSITIVE (CUTOFF=500); OXYCODONE SCREEN,URINE NEGATIVE (CUT0FF=100); PCP SCREEN,URINE NEGATIVE (CUTOFF=25); THC SCREEN,URINE 20 NG/ML PRESUMPTIVE POSITIVE (CUTOFF=50)
[2025-04-09 16:20] LABS: BASOPHILS ABSOLUTE AUTO 0.05 K/uL (0.00-0.20); BASOPHILS PERCENT AUTO 0.3 % (0.0-1.0); EOSINOPHILS ABSOLUTE AUTO 0.14 K/uL (0.00-0.45); EOSINOPHILS PERCENT AUTO 0.8 % (0.0-6.0); IMMATURE GRAN ABSOLUTE AUTO 0.08 K/uL (0.00-0.05); IMMATURE GRAN PERCENT AUTO 0.5 % (0.0-0.4); LYMPHOCYTES ABSOLUTE AUTO 1.93 K/uL (1.00-4.80); LYMPHOCYTES PERCENT AUTO 11.5 % (24.0-44.0); MEAN PLATELET VOLUME 8.3 fL (9.4-12.4); MONOCYTES ABSOLUTE AUTO 1.06 K/uL (0.00-0.80); MONOCYTES PERCENT AUTO 6.3 % (0.0-8.0); NEUTROPHILS ABSOLUTE AUTO 13.48 K/uL (1.80-7.70); NEUTROPHILS PERCENT AUTO 80.6 % (41.0-71.0); NRBC ABSOLUTE 0.00 K/uL (0.00-0.02); NRBC PERCENT 0.0 /100WBC (0.0-0.2); PLATELET COUNT,PLT 336 K/uL (150-400); RED BLOOD CELL COUNT 5.27 M/uL (4.52-5.90); WHITE BLOOD CELL COUNT,WBC 16.74 K/uL (3.9-11.3)
== END 2025-04-09 16:44 | disposition left against medical advice (07) ==
LOC: MW.ED 13:11
DX: F15.10 Other stimulant abuse, uncomplicated (principal); R00.0 Tachycardia, unspecified; R79.89 Other specified abnormal findings of blood chemistry; D72.829 Elevated white blood cell count, unspecified; F17.200 Nicotine dependence, unspecified, uncomplicated; Z53.29 Procedure and treatment not carried out because of patient's decision for other reasons; Z75.3 Unavailability and inaccessibility of health-care facilities; Z79.899 Other long term (current) drug therapy; Z86.16 Personal history of COVID-19
CPT/HCPCS: 36415; 71046; 71260; 73630; 74177; 80053; 80305; 80307; 81001; 82550; 82977; 83605; 83690; 83735; 84484; 85025; 87040; 93005; 96361; 96374; 99285; A9270; J1885; J3490; J7030; Q9967; 99283